=== PATIENT | female | born 1965 | race Caucasian/White ===

== ENCOUNTER 2018-12-21 14:04 | Outpatient (CLI) | payer OTHER ==
[2014-11-02 01:33] VITALS: BP 138/91
--- NOTE | 2018-12-21 20:40 | Diagnostic Imaging Report ---
KENN BARRERA [facility] [address] [facility].[address] [id number] Report Submission Date: Dec 21, 2018 3:32:17 PM CDT Patient Study Name: DONAL BAUM Date: Dec 21, 2018 2:10:27 PM CDT Modality Type: DX Gender: F Description: FOOT 3 VIEWS OR MORE : 69 Institution: [facility] Physician: KENN BARRERA Exam: Left foot. History: Pain after injury. AP and lateral view of the left foot are submitted. 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 No signs of acute fracture or dislocation is seen. No soft tissue abnormalities are identified. Impression: No bony abnormality. Electronically signed on Dec 21, 2018 3:32:17 PM CDT by: Jai ALLEN
--- NOTE | 2018-12-21 20:41 | Diagnostic Imaging Report ---
KENN BARRERA [facility] [address] [facility] [address] [address] Report Submission Date: Dec 21, 2018 3:33:31 PM CDT Patient Study Name: DONAL BAUM Date: Dec 21, 2018 2:10:27 PM CDT Modality Type: DX Gender: F Description: ANKLE 3 VIEWS OR MORE : 69 Institution: [facility] Physician: KENN BARRERA Exam: Left ankle. History: Pain after injury. AP, lateral mortise view of the left ankle are submitted. An acute bony avulsion off the lateral malleolus is identified. Well-corticated bony density adjacent to the lateral malleolus is also noted may indicate previous injury. The distal tibia is intact. Ankle mortise is adequately maintained. No soft tissue abnormality is identified. Impression: Acute bony avulsion off the lateral malleolus. Electronically signed on Dec 21, 2018 3:33:31 PM CDT by: Jai ALLEN
== END 2018-12-21 14:06 ==
LOC: RAD 14:04
PROVIDERS: ATTEND Family Medicine
DX: S82.62XA Displaced fracture of lateral malleolus of left fibula, initial encounter for closed fracture (principal); X58.XXXA Exposure to other specified factors, initial encounter; Y93.9 Activity, unspecified; Y92.9 Unspecified place or not applicable
CPT/HCPCS: 73610; 73630